=== PATIENT | male | born 1975 | race Caucasian/White ===

== ENCOUNTER 2019-01-25 16:45 | Emergency (ER) | payer OTHER ==
[~2019-01-25] VITALS: Ht 180.3 cm; Wt 83.0 kg
[2019-01-25] MEDS ORDERED: VENTOLIN HFA 1818 GM INH (17:19)
[2019-01-25] MEDS ORDERED: LUNESTA3 MG PO (17:19)
[2019-01-25] MEDS ORDERED: MONTELUKAST SOD10 MG PO (17:21)
[2019-01-25] MEDS ORDERED: BREO ELLIPTA 11 EACH INH (18:10)
[2019-01-25] MEDS ORDERED: NORCO 10-325 T1 EACH PO (18:23)
[2019-01-25 18:30] VITALS: BP 136/87
== END 2019-01-25 18:35 | disposition home or self-care (01) ==
LOC: ER 16:45
DX: M25.511 Pain in right shoulder (principal); M25.571 Pain in right ankle and joints of right foot; M25.561 Pain in right knee; M25.531 Pain in right wrist; W11.XXXA Fall on and from ladder, initial encounter; Y93.89 Activity, other specified; Y92.89 Other specified places as the place of occurrence of the external cause; Y99.8 Other external cause status